=== PATIENT | male | born 1985 | race Caucasian/White ===

== ENCOUNTER 2016-07-24 15:37 | Emergency (ER) | payer OTHER, MEDICAID ==
[2016-07-24 16:04] VITALS: BP 125/69
--- NOTE | 2016-07-24 16:20 | ER Document Report ---
ED Medical Screen (RME) - General Stated Complaint: TOOTH PAIN Notes: Patient complains of left lower dental pain that has been going on for a while. Swelling started a couple of days ago, and fever started last night. Patient states he has an appointment with the dentist next Wednesday. Cough or cold symptoms. Patient states it is difficult for him to swallow. I have greeted and performed a rapid initial assessment of this patient. A comprehensive ED assessment and evaluation of the patient, analysis of test results and completion of the medical decision making process will be conducted by additional ED providers. - Related Data Allergies/Adverse Reactions: No Known Allergies Allergy (Unverified 11/26/11 18:42) Past Medical History - Past Medical History Cardiac Medical History: Reports: Hx Hypertension Neurological Medical History: Reports: Hx Migraine Psychiatric Medical History: Reports: Hx Anxiety, Hx Depression, Hx Post Traumatic Stress Disorder - Immunizations Hx Diphtheria, Pertussis, Tetanus Vaccination: No Physical Exam - Vital signs Vitals: Temp Pulse Resp BP Pulse Ox 100.1 F 109 H 16 125/69 98 07/24/16 16:02 07/24/16 16:02 07/24/16 16:02 07/24/16 16:02 07/24/16 16:02 - HEENT Teeth diagram: 1 - swelling around gums Notes: Facial swelling to left lower jaw noted. Mild erythema. Patient is unable to fully open jaw to visualize oropharynx. Course - Vital Signs Vital signs: Temp Pulse Resp BP Pulse Ox 100.1 F 109 H 16 125/69 98 07/24/16 16:02 07/24/16 16:02 07/24/16 16:02 07/24/16 16:02 07/24/16 16:02
--- NOTE | 2016-07-24 17:02 | ER Document Report ---
ED Oral Problem - General Chief Complaint: Facial Swelling Stated Complaint: TOOTH PAIN Mode of Arrival: Ambulatory Information source: Patient TRAVEL OUTSIDE OF THE [place] IN LAST 30 DAYS: No - HPI Patient complains to provider of: Swelling of jaw, Toothache Onset: Other - 2-3 DAYS Quality of pain: Dull, Throbbing Severity: Moderate Context: Fractured tooth Associated symptoms: Facial pain, Fever - TO 104 @ HOME, Toothache. denies: Unable to swallow Worsened by: Nothing Relieved by: Nothing Similar symptoms previously: Yes - NOT RECENT Recently seen / treated by doctor/dentist: No - Related Data Allergies/Adverse Reactions: ketorolac [From Toradol] Allergy (Verified 07/24/16 16:18) Past Medical History - General Information source: Patient - Social History Smoking Status: Never Smoker Chew tobacco use (# tins/day): No Frequency of alcohol use: None Drug Abuse: None Lives with: Family Family History: Reviewed & Not Pertinent Patient has suicidal ideation: No Patient has homicidal ideation: No - Past Medical History Cardiac Medical History: Reports: Hx Hypertension Pulmonary Medical History: Reports: None EENT Medical History: Reports: None Neurological Medical History: Reports: Hx Migraine Endocrine Medical History: Reports: None Renal/ Medical History: Reports: None. Denies: Hx Peritoneal Dialysis Malignancy Medical History: Reports None GI Medical History: Reports: None Musculoskeltal Medical History: Reports None Psychiatric Medical History: Reports: Hx Anxiety, Hx Depression, Hx Post Traumatic Stress Disorder Surgical Hx: Negative - Immunizations Hx Diphtheria, Pertussis, Tetanus Vaccination: No Review of Systems - Review of Systems Constitutional: Chills, Fever EENT: See HPI Cardiovascular: No symptoms reported Respiratory: No symptoms reported Gastrointestinal: No symptoms reported Genitourinary: No symptoms reported Musculoskeletal: No symptoms reported Skin: No symptoms reported Neurological/Psychological: No symptoms reported Physical Exam - Vital signs Vitals: Temp Pulse Resp BP Pulse Ox 100.1 F 109 H 16 125/69 98 07/24/16 16:02 07/24/16 16:02 07/24/16 16:02 07/24/16 16:02 07/24/16 16:02 Interpretation: Tachycardic. No: Hypoxic, Tachypneic, Febrile - 100.4 F - General General appearance: Appears well In distress: None - HEENT Head: Normocephalic Eyes: Normal Conjunctiva: Normal Ears: Normal Nasal: Normal Mouth/Lips: Normal Mucous membranes: Normal Teeth diagram: 1 - FRACTURED Pharynx: Normal Neck: Other - SWOLLEN & TENDER ALONG LEFT MANDIBLE - Respiratory Respiratory status: No respiratory distress - Cardiovascular Rhythm: Regular - Abdominal Inspection: Normal Distension: No distension - Back Back: Normal - Extremities General upper extremity: Normal inspection General lower extremity: Normal inspection - Neurological Neuro grossly intact: Yes Cognition: Normal Orientation: AAOx4 - Psychological Associated symptoms: Normal affect, Normal mood - Skin Skin Temperature: Warm Skin Moisture: Dry Skin Color: Normal Skin Turgor: Elastic Course - Vital Signs Vital signs: Temp Pulse Resp BP Pulse Ox 100.1 F 109 H 19 125/69 98 07/24/16 16:02 07/24/16 16:02 07/24/16 17:00 07/24/16 16:02 07/24/16 16:02 - Diagnostic Test Radiology reviewed: Image reviewed, Reports reviewed Discharge - Discharge Clinical Impression: Facial cellulitis, Infected dental caries Condition: Stable Disposition: HOME, SELF-CARE Instructions: Dental Infection or Abscess ([facility]), Cellulitis ([facility]), Intravenous (IV) Fluids ([facility]), Clindamycin ([facility]), Corticosteroid Medication ([facility]) Additional Instructions: REST, DRINK PLENTY OF FLUIDS. MEDS DIRECTED. FOLLOW UP WITH DENTIST OR ORAL SURGEON NEXT WEEK. FOLLOW UP WITH YOUR PRIMARY CARE PROVIDER IF NEEDED. RETURN TO E.R. IF PROBLEMS. Prescriptions: Hydrocodone/Acetaminophen [[place] 5-325 mg Tablet] 1 tab PO Q4HP PRN #14 tablet PRN Reason: For Pain Clindamycin HCl [Cleocin 150 mg Capsule] 300 mg PO Q6 #56 capsule Referrals: LINDA CANNON MD [Primary Care Provider] - Follow up as needed
[2016-07-24] MEDS ORDERED: ONDANSETRON HCL INJ/PF 4 MG/2 ML SDV IV ONE (17:21)
[2016-07-24] MEDS ORDERED: CLINDAMYCIN 600 MG/D5W RTU 50 ML IV ONE (17:21)
[2016-07-24] MEDS ORDERED: NORMAL SALINE 1000 ML 1,000 ML IV ONE (17:23)
[2016-07-24] MEDS ORDERED: HYDROMORPHONE HCL INJ/PF 2 MG/ML AMPULE IV ONE ×2 (17:23→19:26)
[2016-07-24] MEDS ORDERED: DEXAMETHASONE SOD PHOS INJ 10 MG/1 ML VIAL IV ONE (19:26)
== END 2016-07-24 22:01 | disposition home or self-care (01) ==
LOC: ER 15:37
DX: K04.7 Periapical abscess without sinus (principal); L03.211 Cellulitis of face; K02.9 Dental caries, unspecified; R50.9 Fever, unspecified; R00.0 Tachycardia, unspecified; I10 Essential (primary) hypertension; Z88.8 Allergy status to other drugs, medicaments and biological substances
CPT/HCPCS: 96376; 99283; 96361; 96374; 96375; 70487; J1170; J2405; J7030; J1100

== ENCOUNTER 2016-12-02 20:56 | Emergency (ER) | payer OTHER, MEDICAID ==
[2016-12-02] MEDS ORDERED: DIPH/PERTUSS(ACELL)/TETANUS VAC/PF 0.5 ML SYR (>=10YO) IM ONE (21:21)
--- NOTE | 2016-12-02 21:25 | ER Document Report ---
ED Psych Disorder / Suicide - General Chief Complaint: Psych Problem Stated Complaint: MENTAL HEALTH EVAL Time Seen by Provider: 12/02/16 21:08 Mode of Arrival: Medic Information source: Patient Notes: Is a 31-year-old man with a history of PTSD, TBI, brought in by EMS for aggressive behavior, suicidal ideations. Patient states he has been very frustrated yesterday today and he had an emotional outburst and started to punch the wall, took a knife and started to cut his arms. Medications: Seroquel 150 mg nightly, Klonopin 1 mg twice daily Trileptal 150 mg nightly TRAVEL OUTSIDE OF THE [place] IN LAST 30 DAYS: No - HPI Patient complains to provider of: Aggression, Agitated, Suicidal ideation, Self injury Onset: Just prior to arrival Onset was: Sudden Quality of pain: Dull Severity: Moderate Pain Level: 2 Suicide Risk Factors: Chronic illness, Lethal weapons in home, Male Overdose of: No: Acetominophen, Alcohol, Anticholinergic, Anti-depressants, Benzodiazepine, Salicylate, Tricyclic Antidepressant, Other Injury to: Hand, Upper extremity Normal mood: No Associated symptoms: Aggressive, Agitated, Anxious Similar symptoms previously: Yes Recently seen / treated by doctor: No - Related Data Allergies/Adverse Reactions: ketorolac [From Toradol] Allergy (Verified 12/02/16 21:19) Home Medications: Current Home Medications Clonazepam [Klonopin 1 mg Tablet] 1 mg PO DAILY 12/02/16 [History] Oxcarbazepine [Trileptal 150 mg Tablet] 150 mg PO DAILY 12/02/16 [History] Quetiapine Fumarate [Seroquel Xr] 150 mg PO DAILY 12/02/16 [History] Past Medical History - General Information source: Patient - Social History Smoking Status: Never Smoker Cigarette use (# per day): No Chew tobacco use (# tins/day): No Frequency of alcohol use: None Drug Abuse: None Lives with: Spouse/Significant other Family History: Reviewed & Not Pertinent Patient has suicidal ideation: No Patient has homicidal ideation: No - Past Medical History Cardiac Medical History: Reports: Hx Hypertension Neurological Medical History: Reports: Hx Migraine Renal/ Medical History: Denies: Hx Peritoneal Dialysis Psychiatric Medical History: Reports: Hx Anxiety, Hx Depression, Hx Post Traumatic Stress Disorder - Immunizations Hx Diphtheria, Pertussis, Tetanus Vaccination: No Review of Systems - Review of Systems Constitutional: No symptoms reported EENT: No symptoms reported Cardiovascular: No symptoms reported Respiratory: No symptoms reported Gastrointestinal: No symptoms reported Genitourinary: No symptoms reported Male Genitourinary: No symptoms reported Musculoskeletal: See HPI Skin: See HPI Hematologic/Lymphatic: No symptoms reported Neurological/Psychological: See HPI Physical Exam - Vital signs Vitals: Temp Pulse Resp BP Pulse Ox 99.1 F 107 H 16 129/89 H 98 12/02/16 21:21 12/02/16 21:21 12/02/16 21:21 12/02/16 21:21 12/02/16 21:21 Notes: Physical exam: GENERAL: 31-year-old man, alert and oriented 3, no acute distress, labile affect. HEAD: Atraumatic, normocephalic. EYES: Pupils equal round and reactive to light, extraocular movements intact, sclera anicteric, conjunctiva are normal. ENT: TMs normal, nares patent, oropharynx clear without exudates. Moist mucous membranes. NECK: Normal range of motion, supple without lymphadenopathy or JVD. LUNGS: Breath sounds clear to auscultation bilaterally and equal. No wheezes rales or rhonchi. HEART: Regular rate and rhythm without murmurs, rubs or gallops. ABDOMEN: Soft, normoactive bowel sounds. No tenderness to palpation. No guarding, no rebound. No masses appreciated. EXTREMITIES: Patient has swelling over the fourth and fifth third, MCP joint of the right hand. Cut noble noted on upper extremities bilaterally. NEUROLOGICAL: Cranial nerves II through XII grossly intact. Normal speech, normal gait. PSYCH: labile affect SKIN: Multiple self-induced cut noble to the volar aspects of both forearms.. Multiple Course - Re-evaluation Re-evalutation: 12/03/16 02:38 Note: Patient does have asymptomatic hematuria. He does have a history of back pain but I think that is more musculoskeletal in origin. CT shows no evidence of ureteral stones. The urine analysis does have 1+ bacteria so I am going to give him an antibiotic with the plan of 5 days of Bactrim. We will send a urine culture. He is medically clear for discharge or psychiatric transfer. Plan is for waiting for psychiatry in the morning. At this point, he is willing to stay so I am going to keep him as a voluntary. - Vital Signs Vital signs: Temp Pulse Resp BP Pulse Ox 99.1 F 107 H 16 129/89 H 98 12/02/16 21:21 12/02/16 21:21 12/02/16 21:21 12/02/16 21:21 12/02/16 21:21 - Laboratory Result Diagrams: 12/02/16 21:53 12/02/16 21:53 Laboratory results interpreted by me: 12/02/16 12/02/16 21:53 22:20 Urine Protein 100 H Urine Ketones TRACE H Urine Blood LARGE H Salicylates < 1.0 L Acetaminophen < 10 L - Diagnostic Test Radiology reviewed: Image reviewed, Reports reviewed - CT of the abdomen shows no acute intra-abdominal process - EKG Interpretation by Me Rate: Normal Rhythm: NSR - EKG shows normal sinus rhythm with a ventricular rate of 97, no acute ST-T wave changes Discharge - Discharge Clinical Impression: Depression, Suicidal ideation, Right hand contusion, Cutting to the upper extremities, Hematuria asymptomatic, rigjht hand contusion Condition: Stable Disposition: PSYCH HOSP/UNIT Prescriptions: Sulfamethoxazole/Trimethoprim [Bactrim Ds Tablet] 1 each PO BID #8 tablet
--- NOTE | 2016-12-02 21:59 | RADIOLOGY REPORT (SQ) ---
EXAM DESCRIPTION: HAND RIGHT 3 VIEWS COMPLETED DATE/TIME: 12/02/2016 9:43 pm REASON FOR STUDY: swelling 3,4,5 mcp jts COMPARISON: None. EXAM PARAMETERS: NUMBER OF VIEWS: Three views. TECHNIQUE: AP, lateral and oblique radiographic images acquired of the right hand. LIMITATIONS: None. FINDINGS: MINERALIZATION: Normal. BONES: No acute fracture or dislocation. No worrisome bone lesions. JOINTS: No effusions. SOFT TISSUES: No soft tissue swelling. No foreign body. OTHER: No other significant finding. IMPRESSION: NEGATIVE STUDY OF THE RIGHT HAND. NO RADIOGRAPHIC EVIDENCE OF ACUTE INJURY. TECHNICAL DOCUMENTATION: JOB ID: [id number] [employer]- All Rights Reserved
[2016-12-02 22:09] LABS: ABSOLUTE BASOPHILS # (AUTO) 0.1 10^3/uL (0.0-0.2); ABSOLUTE EOSINOPHILS # (AUTO) 0.1 10^3/uL (0.0-0.6); ABSOLUTE MONOCYTES (AUTO) 0.8 10^3/uL (0.1-1.4); ABSOLUTE NEUT (AUTO) 5.2 10^3/uL (1.7-8.2); BASOPHILS % (AUTO) 0.9 % (0-2); HEMATOCRIT 44.1 % (37.9-51.0); HGB HCT DIFFERENCE 0.9; LYMPHOCYTES % (AUTO) 24.4 % (13-45); MEAN CORPUSCULAR HEMOGLOBIN 30.7 pg (27.0-33.4); MEAN CORPUSCULAR HGB CONC 33.9 g/dL (32.0-36.0); MEAN CORPUSCULAR VOLUME 91 fl (80-97); MONOCYTES % (AUTO) 9.2 % (3-13); RED BLOOD COUNT 4.87 10^6/uL (4.35-5.55); RED CELL DISTRIBUTION WIDTH 13.1 % (11.5-14.0); SEGMENTED NEUTROPHILS % (AUTO) 64.5 % (42-78); WHITE BLOOD COUNT 8.1 10^3/uL (4.0-10.5)
[2016-12-02 22:26] LABS: ALANINE AMINOTRANSFERASE 26 U/L (21-72); ALCOHOL < 10 mg/dL (NONE DETECTED); ALKALINE PHOSPHATASE 92 U/L (38-126); ANION GAP 15 (5-19); ASPARTATE AMINO TRANSFERASE 17 U/L (17-59); BILIRUBIN,DIRECT 0.3 mg/dL (0.0-0.4); BILIRUBIN,TOTAL 0.6 mg/dL (0.2-1.3); BLOOD UREA NITROGEN 10 mg/dL (7-20); CARBON DIOXIDE 23 mmol/L (22-30); CHLORIDE 105 mmol/L (98-107); CREATININE RESULT 0.96 mg/dL (0.52-1.25); GLUCOSE 98 mg/dL (75-110); SODIUM 142.6 mmol/L (137-145); TOTAL PROTEIN 8.1 g/dL (6.3-8.2)
[2016-12-02 22:52] LABS: APPEARANCE,URINE CLOUDY; BILIRUBIN,URINE NEGATIVE (NEGATIVE); CALCIUM OXALATE CRYSTALS,URINE FEW /HPF; GLUCOSE, URINE NEGATIVE (NEGATIVE); KETONES,URINE TRACE mg/dL (NEGATIVE); LEUKOCYTE ESTERASE,URINE NEGATIVE (NEGATIVE); NITRITE,URINE NEGATIVE (NEGATIVE); PROTEIN,URINE 100 mg/dL (NEGATIVE); URINE SPECIFIC GRAVITY 1.019; UROBILINOGEN,URINE NEGATIVE mg/dL (<2.0)
[2016-12-02 23:01] LABS: URINE BARBITURATES SCREEN NEGATIVE; URINE METHADONE SCREEN NEGATIVE; URINE OPIATES LOW NEGATIVE; URINE PHENCYCLIDINE SCREEN NEGATIVE
--- NOTE | 2016-12-03 01:51 | RADIOLOGY REPORT (SQ) ---
EXAM DESCRIPTION: CT LTD RENAL STONE PROTOCOL ON COMPLETED DATE/TIME: 12/03/2016 1:25 am REASON FOR STUDY: right flank pain COMPARISON: None. TECHNIQUE: CT scan of the abdomen and pelvis performed without intravenous or oral contrast. Images reviewed with lung, soft tissue, and bone windows. Reconstructed coronal and sagittal MPR images revi ewed. All images stored on PACS. All CT scanners at this facility use dose modulation, iterative reconstruction, and/or weight based d osing when appropriate to reduce radiation dose to as low as reasonably achievable (ALARA). [facility]: Dose Right [facility]: CareDose [facility]: Dose Right [facility]: Teradose 4D [facility]: Smart [employer] RADIATION DOSE: Up-to-date CT equipment and radiation dose reduction techniques were employed. CTDIv ol: 23.3 mGy. DLP: 1326 mGy-cm.mGy. LIMITATIONS: None. FINDINGS: LOWER CHEST: No significant findings. No nodules or infiltrates. NON-CONTRASTED LIVER, SPLEEN, ADRENALS: Evaluation limited by lack of IV contrast. No identified sign ificant masses. PANCREAS: No masses. No peripancreatic inflammatory changes. GALLBLADDER: No identified stones by CT criteria. No inflammatory changes to suggest cholecystitis. RIGHT KIDNEY AND URETER: No suspicious masses. Assessment limited by lack of IV contrast. Punctate stones. No hydronephrosis or hydroureter. LEFT KIDNEY AND URETER: No suspicious masses. Assessment limited by lack of IV contrast. Punctate n ephrolithiasis. No hydronephrosis or hydroureter. AORTA AND RETROPERITONEUM: No aneurysm. No retroperitoneal masses or adenopathy. BOWEL AND PERITONEAL CAVITY: No obvious masses or inflammatory changes. No free fluid. APPENDIX: Normal. PELVIS, BLADDER, AND ABDOMINAL WALL:No abnormal masses. No free fluid. Bladder normal. BONES: Chronic bilateral L5 spondylolysis and [id number] bilateral L5 foraminal stenoses due to a small disc bulge. OTHER: No other significant finding. IMPRESSION: No acute findings. Punctate bilateral nephrolithiasis. [id number] bilateral L5 f oraminal stenosis due to a small disc bulge. Chronic bilateral L5 spondylolysis. TECHNICAL DOCUMENTATION: JOB ID: [id number] Quality ID # [id number]: Final reports with documentation of one or more dose reduction techniques (e.g., Au tomated exposure control, adjustment of the mA and/or kV according to patient size, use of iterative reconstruction technique) 2010 [facility] [employer]- All Rights Reserved
[2016-12-03] MEDS ORDERED: SULFAMETHOXAZOLE/TRIMETHOPRIM 800-160 MG TABLET PO ONE (02:38)
[2016-12-03] MEDS ORDERED: QUETIAPINE FUMARATE 100 MG TABLET PO SCH ×2 (02:45→22:00)
[2016-12-03] MEDS ORDERED: CLONAZEPAM 1 MG TABLET PO PRN (02:45)
[2016-12-03] MEDS ORDERED: OXCARBAZEPINE 150 MG TABLET PO SCH ×2 (03:00→22:00)
[2016-12-03] MEDS ORDERED: QUETIAPINE FUMARATE 100 MG TABLET PO ONE (03:30)
[2016-12-03] MEDS ORDERED: OXCARBAZEPINE 150 MG TABLET PO ONE (03:30)
--- NOTE | 2016-12-03 09:32 | PSYCHOLOGICAL NOTE ---
Psych Note - Psych Note Psych Note: Patient resting comfortably in the bed. He denies any complaints at this time. He is currently awaiting placement.
[2016-12-03 13:08] VITALS: BP 141/76
--- NOTE | 2016-12-03 17:09 | EKG REPORT ---
SEVERITY:- ABNORMAL ECG - SINUS RHYTHM PROBABLE LEFT VENTRICULAR HYPERTROPHY : Confirmed by: Mer Valente MD 03-Dec-2016 17:09:02
== END 2016-12-03 13:17 ==
LOC: ER 20:56
DX: S51.812A Laceration without foreign body of left forearm, initial encounter (principal); S51.811A Laceration without foreign body of right forearm, initial encounter; X78.1XXA Intentional self-harm by knife, initial encounter; S60.221A Contusion of right hand, initial encounter; X58.XXXA Exposure to other specified factors, initial encounter; F32.9 Major depressive disorder, single episode, unspecified; F43.10 Post-traumatic stress disorder, unspecified; R31.9 Hematuria, unspecified; F41.9 Anxiety disorder, unspecified; I10 Essential (primary) hypertension; Z79.899 Other long term (current) drug therapy; Z88.8 Allergy status to other drugs, medicaments and biological substances; Z87.820 Personal history of traumatic brain injury
CPT/HCPCS: 36415; 76380; 80053; 80307; 81001; 85025; 87086; 90471; 90715; 93005; 93010; 99285

== ENCOUNTER 2018-09-23 12:57 | Emergency (ER) | payer OTHER, MEDICAID ==
--- NOTE | 2018-09-23 13:15 | ER Document Report ---
ED Medical Screen (RME) - General Chief Complaint: Psych Problem Stated Complaint: PSYCH EVAL Time Seen by Provider: 09/23/18 13:09 Mode of Arrival: Ambulatory Information source: Patient Notes: 33-year-old male presented to ED for psych evaluation and possible voluntary or involuntary admission. Patient states that he has a history of PTSD since coming home from [facility] and he is been seen and admitted IVC and in patient but nothing seems to be helping. Significant other states [facility]. She states that every day he states he is done with that he has had a set up with everything. I have greeted and performed a rapid initial assessment of this patient. A comprehensive ED assessment and evaluation of the patient, analysis of test results and completion of medical decision making process will be conducted by an additional ED providers. Dictation of this chart was performed using voice recognition software; therefore, there may be some unintended grammatical errors. TRAVEL OUTSIDE OF THE U.S. IN LAST 30 DAYS: No - Related Data Allergies/Adverse Reactions: ketorolac [From Toradol] Allergy (Verified 09/23/18 12:58) Past Medical History - Past Medical History Cardiac Medical History: Reports: Hx Hypertension Neurological Medical History: Reports: Hx Migraine Renal/ Medical History: Denies: Hx Peritoneal Dialysis Psychiatric Medical History: Reports: Hx Anxiety, Hx Depression, Hx Post Traumatic Stress Disorder - Immunizations Hx Diphtheria, Pertussis, Tetanus Vaccination: No Physical Exam - Vital signs Vitals: Temp Pulse Resp BP Pulse Ox 98.3 F 66 16 129/81 H 100 09/23/18 13:01 09/23/18 13:01 09/23/18 13:01 09/23/18 13:01 09/23/18 13:01 Course - Vital Signs Vital signs: Temp Pulse Resp BP Pulse Ox 98.3 F 66 16 129/81 H 100 09/23/18 13:01 09/23/18 13:01 09/23/18 13:01 09/23/18 13:01 09/23/18 13:01
[2018-09-23 13:51] LABS: ABSOLUTE EOSINOPHILS # (AUTO) 0.1 10^3/uL (0.0-0.6); ABSOLUTE LYMPHOCYTES (AUTO) 2.7 10^3/uL (0.5-4.7); ABSOLUTE MONOCYTES (AUTO) 0.7 10^3/uL (0.1-1.4); ABSOLUTE NEUT (AUTO) 7.5 10^3/uL (1.7-8.2); BASOPHILS % (AUTO) 0.4 % (0-2); EOSINOPHILS % (AUTO) 0.7 % (0-6); HEMATOCRIT 45.8 % (37.9-51.0); HEMOGLOBIN 15.6 g/dL (13.5-17.0); LYMPHOCYTES % (AUTO) 24.7 % (13-45); MEAN CORPUSCULAR HEMOGLOBIN 30.6 pg (27.0-33.4); MEAN CORPUSCULAR VOLUME 90 fl (80-97); MONOCYTES % (AUTO) 6.5 % (3-13); PLATELET COUNT 318 10^3/uL (150-450); RED BLOOD COUNT 5.09 10^6/uL (4.35-5.55); RED CELL DISTRIBUTION WIDTH 13.7 % (11.5-14.0); SEGMENTED NEUTROPHILS % (AUTO) 67.7 % (42-78); TOTAL CELLS COUNTED % (AUTO) 100 %; WHITE BLOOD COUNT 11.1 10^3/uL (4.0-10.5)
[2018-09-23 14:34] LABS: ALANINE AMINOTRANSFERASE 21 U/L (21-72); ALBUMIN 4.8 g/dL (3.5-5.0); ALKALINE PHOSPHATASE 104 U/L (38-126); ANION GAP 12 (5-19); ASPARTATE AMINO TRANSFERASE 19 U/L (17-59); BILIRUBIN,DIRECT 0.2 mg/dL (0.0-0.4); BILIRUBIN,TOTAL 0.7 mg/dL (0.2-1.3); BLOOD UREA NITROGEN 15 mg/dL (7-20); CALCIUM 10.3 mg/dL (8.4-10.2); CARBON DIOXIDE 26 mmol/L (22-30); CHLORIDE 106 mmol/L (98-107); GLUCOSE 105 mg/dL (75-110); POTASSIUM 4.4 mmol/L (3.6-5.0); SODIUM 143.9 mmol/L (137-145); TOTAL PROTEIN 7.9 g/dL (6.3-8.2)
[2018-09-23 14:38] LABS: ACETAMINOPHEN < 10 ug/mL (10-30); ALCOHOL < 10 mg/dL (NONE DETECTED); SALICYLATE < 1.0 mg/dL (2.0-20.0)
--- NOTE | 2018-09-23 15:00 | ER Document Report ---
ED Psych Disorder / Suicide - General Chief Complaint: Psych Problem Stated Complaint: PSYCH EVAL Time Seen by Provider: 09/23/18 13:09 Mode of Arrival: Ambulatory Notes: 33-year-old male with a history of PTSD presents to the ER after being sent from the [facility]. The patient got out of [place] in 2010. Had PTSD since then. He has recurring cycles of suicidal thoughts. He did try to hurt himself in the past. He states that he was opening up to his counselor a little bit about his thoughts. He has no specific plan. The patient stated he has been treated for his PTSD again and again he states he is actually not bad. He denies any homicidal ideation denies any active suicidal ideation but does admit to having thoughts recently. Denies visual auditory hallucinations. Patient is very agreeable and cooperative TRAVEL OUTSIDE OF THE [place] IN LAST 30 DAYS: No - Related Data Allergies/Adverse Reactions: ketorolac [From Toradol] Allergy (Verified 09/23/18 12:58) Past Medical History - General Information source: Patient - Social History Smoking Status: Never Smoker Frequency of alcohol use: None Drug Abuse: None Family History: Reviewed & Not Pertinent Patient has suicidal ideation: No Patient has homicidal ideation: No - Past Medical History Cardiac Medical History: Reports: Hx Hypertension Neurological Medical History: Reports: Hx Migraine Renal/ Medical History: Denies: Hx Peritoneal Dialysis Psychiatric Medical History: Reports: Hx Anxiety, Hx Depression, Hx Post Tr aumatic Stress Disorder Past Surgical History: Reports: Hx Genitourinary Surgery - vasectomy - Immunizations Hx Diphtheria, Pertussis, Tetanus Vaccination: No Review of Systems - Review of Systems Constitutional: denies: Chills, Fever Cardiovascular: denies: Chest pain Respiratory: denies: Short of breath Gastrointestinal: denies: Abdominal pain, Nausea, Vomiting Neurological/Psychological: Anxiety, Suicidal ideation. denies: Homicidal ideation -: Yes All other systems reviewed and negative Physical Exam - Vital signs Vitals: Temp Pulse Resp BP Pulse Ox 98.3 F 66 16 129/81 H 100 09/23/18 13:01 09/23/18 13:01 09/23/18 13:01 09/23/18 13:01 09/23/18 13:01 - Notes Notes: GENERAL_APPEARANCE: well_nourished, alert, cooperative, no_acute_distress, no_obvious_discomfort. VITALS: reviewed, see vital signs table. HEAD: no_swelling\tenderness on the head. EYES: PERRL, EOMI, conjunctiva_clear. NOSE: no_nasal_discharge. MOUTH: (-)decreased moisture. THROAT: no_tonsilar_inflammation, no_airway_obstruction. no_lymphadenopathy NECK: supple, no_neck_tenderness, (-)thyromegaly. BACK: no_back_tenderness. CHEST_WALL: no_chest_tenderness. LUNGS: no_wheezing, no_rales, no_rhonchi, (-)accessory muscle use, good air exchange bilateral. HEART: normal_rate, normal_rhythm, normal_S1, normal_S2, (-)S3, (-)S4, no_murmur, no_rub. ABDOMEN: normal_BS, soft, no_abd_tenderness, (-)guarding, (-)rebound, no_org anomegaly, no_abd_masses. EXTREMITIES: good pulses in all_extremities, no_swelling\tenderness in the extremities, no_edema. SKIN: warm, dry, good_color, no_rash. MENTAL_STATUS: speech_clear, oriented_X_3, normal_affect, responds_appropriately to questions. PSYCH: Patient denies suicidal homicidal thoughts denies visual auditory hallucinations. He does give me a history of PTSD with recurrent depression and suicidal thoughts. He states he is not actively suicidal at this time however he he was talking to his counselor about some of his thoughts and they sent him here. Course - Re-evaluation Re-evalutation: 09/23/18 14:59 Patient was sent by [facility] [place] [facility] for [facility] and [facility]. Patient is very pleasant and agreeable. He denies any suicidal homicidal thoughts denies visual auditory hallucinations. The patient very organized laid out his pattern with his PTSD. He was opening up to his counselor which he is regretful from and telling him that he has had some suicidal thoughts lately but has no speci fic plan and does not actively suicidal. And was sent here he states he is not suicidal. He is doing fine his endorses this also. Have the patient seen by psychiatry but as of now he is looking pretty good and has been very agreeable cooperative organized thought and making a pretty reasonable story - Vital Signs Vital signs: Temp Pulse Resp BP Pulse Ox 98.3 F 66 16 129/81 H 100 09/23/18 13:01 09/23/18 13:01 09/23/18 13:01 09/23/18 13:01 09/23/18 13:01 - Laboratory Result Diagrams: 09/23/18 10:32 09/23/18 10:32 Laboratory results interpreted by me: 09/23/18 09/23/18 10:32 10:32 WBC 11.1 H Calcium 10.3 H Salicylates < 1.0 L Acetaminophen < 10 L Discharge - Discharge Clinical Impression: PTSD (post-traumatic stress disorder) Condition: Good Disposition: PSYCH HOSP/UNIT
--- NOTE | 2018-09-23 16:21 | EKG REPORT ---
SEVERITY:- OTHERWISE NORMAL ECG - SINUS RHYTHM BORDERLINE RIGHT AXIS DEVIATION : Confirmed by: Shiv Reid MD 23-Sep-2018 16:20:48
[2018-09-23] MEDS: VENLAFAXINE HCL 37.5 MG CAP.SR.24H PO SCH (18:07)
--- NOTE | 2018-09-23 18:29 | PSYCHOLOGICAL NOTE ---
Psych Note - Psych Note Date seen by psych provider: 09/23/18 Time seen by psych provider: 14:00 Psych Note: Reason for Consult: suicidal ideation consent permissions: patient's , Renetta, at bedside per patient's request 33-year-old male presented to ED for psych evaluation and possible voluntary or involuntary admission. Medication recommendations per [facility]'s contracted psychiatrist Dr. Saad SOSA are as follows Please decrease home medication of BuSpar to 5 mg twice daily Please decrease home medication of melatonin to 5 mg nightly Please start Effexor 37.5 mg be daily While at [facility] ED please start clonidine 0.1 mg nightly Upon discharge please replace clonidine with a prescription for prazosin 2 mg nightly Please discontinue home medications of Ambien and Xanax 309.81 (F43.10) posttraumatic stress disorder [facility] by [facility]; patient is 100% disabled due to this diagnosis per [facility] Impression\plan: Patient is recommended for overnight mental health observation. This is voluntary. Patient does not meet IVC criteria per [place] GS 122C. He has been demonstrating strong insight, judgment and impulse control both throughout evaluation with clinician and today while he is been attempting to receive additional services. Patient discloses wanting assistance and states that he attempted to receive services from both his outpatient mental health provider for medication management, [facility], and [facility]. He confirms symptoms have gotten to level where he needs to take a more active role in his treatment i.e. possible medication changes and engage in therapeutic services. Medication recommendations have been provided. Both patient and patient's are very comfortable with the plan for the patient to stay voluntarily for medication adjustments. Probable discharge tomorrow a.m. Dr. De Leon was consulted and the care management this patient; attending physicians in agreement with recommendations and disposition.
[2018-09-23 19:48] LABS: APPEARANCE,URINE CLEAR; BILIRUBIN,URINE NEGATIVE (NEGATIVE); COLOR,URINE YELLOW; GLUCOSE, URINE NEGATIVE (NEGATIVE); KETONES,URINE 80 mg/dL (NEGATIVE); LEUKOCYTE ESTERASE,URINE NEGATIVE (NEGATIVE); NITRITE,URINE NEGATIVE (NEGATIVE); PROTEIN,URINE NEGATIVE (NEGATIVE); URINE SPECIFIC GRAVITY 1.021
[2018-09-23 20:06] LABS: URINE AMPHETAMINES SCREEN NEGATIVE; URINE BARBITURATES SCREEN NEGATIVE; URINE BENZODIAZEPINES SCREEN UNCONFIRMED POSITIVE; URINE COCAINE SCREEN NEGATIVE; URINE MARIJUANA (THC) SCREEN UNCONFIRMED POSITIVE; URINE METHADONE SCREEN NEGATIVE; URINE PHENCYCLIDINE SCREEN NEGATIVE
[2018-09-23] MEDS ORDERED: MELATONIN 5 MG TABLET PO SCH (22:00)
[2018-09-23] MEDS ORDERED: CLONIDINE HCL 0.1 MG TABLET PO SCH (22:00)
[2018-09-23] MEDS: BUSPIRONE HCL 10 MG TABLET PO SCH (22:38)
[2018-09-24] MEDS ORDERED: ACETAMINOPHEN 325 MG TABLET PO ONE (01:29)
[2018-09-24] MEDS ORDERED: ONDANSETRON 4 MG TAB.RAPDIS PO ONE (01:29)
[2018-09-24] MEDS ORDERED: SUMATRIPTAN SUCCINATE 100 MG TABLET PO ONE (09:19)
--- NOTE | 2018-09-24 10:13 | ER Document Report ---
Doctor's Note Notes: 09/24/18 10:11 Rounds: Chart reviewed and patient interviewed. Patient is being evaluated for PTSD with suicidal ideation. Patient says he is not suicidal. Seems a bit perturbed and agitated but he is still here because he thought he agreed to come to the emergency department and be evaluated overnight and then be discharged. Patient is complaining of a migraine headache. The headache is exactly like many in the past. He usually takes Imitrex I have given him 100 mg pill of Imitrex. Vital signs are all normal. Lab studies show a positive urine drug screen for marijuana and benzos. Patient appears to be medically stable for transfer or discharge. Ranulfo Martins MD
[2018-09-24] MEDS: BUSPIRONE HCL 10 MG TABLET PO SCH (10:18)
[2018-09-24] MEDS: VENLAFAXINE HCL 37.5 MG CAP.SR.24H PO SCH (10:18)
[2018-09-24 11:08] VITALS: BP 139/86
== END 2018-09-24 11:26 | disposition home or self-care (01) ==
LOC: ER 12:57
DX: F43.10 Post-traumatic stress disorder, unspecified (principal); I10 Essential (primary) hypertension; F29 Unspecified psychosis not due to a substance or known physiological condition
CPT/HCPCS: 93005; 99285; 36415; 80307 ×4; 85025; 80053; 81001; 93010; J3490 ×3; S0119

== ENCOUNTER 2020-05-20 17:54 | Emergency (ER) | payer OTHER, MEDICAID ==
[2020-05-20] MEDS ORDERED: ONDANSETRON HCL INJ/PF 4 MG/2 ML SDV IV ONE (19:37)
[2020-05-20] MEDS ORDERED: MORPHINE SULFATE 10 MG/ML INJ IV ONE ×2 (19:38→23:41)
[2020-05-20] MEDS ORDERED: NORMAL SALINE 1000 ML 1,000 ML IV ONE (19:38)
--- NOTE | 2020-05-20 19:42 | ER Document Report ---
ED Medical Screen (RME) - General Chief Complaint: Abdominal Pain Stated Complaint: ABDOMINAL PAIN Time Seen by Provider: 05/20/20 19:33 Primary Care Provider: [facility] MENDOZA [Primary Care Provider] - Follow up as needed Notes: HPI: 34-year-old male presenting with right lower quadrant pain that began yesterday and progressively worsened today. Hurts to move hurts to straighten out. Patient states he feels like the pain is in the right lower quadrant with some radiation into the right upper quadrant and right testicle but denies testicular pain specifically. No fever. Has had nausea with no vomiting. Has had diarrhea. PHYSICAL EXAMINATION: Patient is moderately pale. He is moderately uncomfortable. He has increased discomfort with straightening. He has tenderness over McBurney's point in the right lower quadrant with rebound. exam deferred in triage secondary to privacy and patient fully dressed will be deferred to room in the back for other provider to follow and examine I have greeted and performed a rapid initial assessment of this patient. A comprehensive ED assessment and evaluation of the patient, analysis of test results and completion of medical decision making process will be conducted by an additional ED providers. Please note that clinical decision making for this patient was made during the 2019 pandemic of novel coronavirus which caused a significant strain on the healthcare system including at this particular facility. Criteria for admission discharge and level of care decisions as well as treatment decisions have necessarily changed TRAVEL OUTSIDE OF THE [place] IN LAST 30 DAYS: No - Related Data Allergies/Adverse Reactions: ketorolac [From Toradol] Allergy (Verified 09/23/18 12:58) Past Medical History - Past Medical History Cardiac Medical History: Reports: Hx Hypertension Neurological Medical History: Reports: Hx Migraine Renal/ Medical History: Denies: Hx Peritoneal Dialysis Psychiatric Medical History: Reports: Hx Anxiety, Hx Depression, Hx Post Traumatic Stress Disorder Past Surgical History: Reports: Hx Genitourinary Surgery - vasectomy - Immunizations Hx Diphtheria, Pertussis, Tetanus Vaccination: No Physical Exam - Vital signs Vitals: Temp Pulse Resp BP Pulse Ox 97.9 F 68 16 132/79 H 97 05/20/20 17:58 05/20/20 17:58 05/20/20 17:58 05/20/20 17:58 05/20/20 17:58 Course - Vital Signs Vital signs: Temp Pulse Resp BP Pulse Ox 97.9 F 68 16 132/79 H 97 05/20/20 17:58 05/20/20 17:58 05/20/20 17:58 05/20/20 17:58 05/20/20 17:58 Doctor's Discharge - Discharge Referrals: [facility] [Primary [facility]] - Follow up as needed
--- NOTE | 2020-05-20 20:30 | ER Document Report ---
ED GI/ - General Chief Complaint: Abdominal Pain Stated Complaint: ABDOMINAL PAIN Time Seen by Provider: 05/20/20 19:33 Primary Care Provider: [facility] [Provider Group] - Follow up as needed ISA POWELL MD [NO LOCAL MD] - Follow up in 3-5 days [facility] [Primary Care Provider] - Follow up as needed Mode of Arrival: Ambulatory Information source: Patient Notes: Patient presents with right lower quadrant abdominal pain that started yesterday . Patient reports nausea although denies any vomiting or diarrhea. Patient does complain of pain to the right scrotal area. Patient states he did notice some burning with urination. Patient states he has had a normal appetite without any fever. TRAVEL OUTSIDE OF THE [place] IN LAST 30 DAYS: No - HPI Patient complains to provider of: Abdominal pain, Testicular pain. No: Diarrhea, Vomiting Onset: Yesterday Timing/Duration: Worse Quality of pain: Achy Pain Level: 5 Location: RLQ Associated symptoms: Dysuria, Nausea. denies: Fever, Loss of appetite, Urinary hesitancy, Urinary frequency, Urinary retention, Urinary urgency, Vomiting Exacerbated by: Denies Relieved by: Denies Similar symptoms previously: No Recently seen / treated by doctor: No - Related Data Allergies/Adverse Reactions: ketorolac [From Toradol] Allergy (Verified 09/23/18 12:58) Home Medications: Trazadone Past Medical History - General Information source: Patient - Social History Smoking Status: Never Smoker Frequency of alcohol use: None Drug Abuse: None Occupation: None Family History: Reviewed & Not Pertinent Patient has homicidal ideation: No Neurological Medical History: Reports: Hx Migraine Renal/ Medical History: Denies: Hx Peritoneal Dialysis Musculoskeletal Medical History: Reports Hx Arthritis - Back pain Psychiatric Medical History: Reports: Hx Anxiety, Hx Depression, Hx Post Traumatic Stress Disorder Past Surgical History: Reports: Hx Genitourinary Surgery - vasectomy - Immunizations Hx Diphtheria, Pertussis, Tetanus Vaccination: No Review of Systems - Review of Systems Constitutional: No symptoms reported. denies: Fever EENT: No symptoms reported Cardiovascular: No symptoms reported. denies: Chest pain Respiratory: No symptoms reported. denies: Cough, Short of breath Gastrointestinal: Abdominal pain, Nausea. denies: Diarrhea, Vomiting Genitourinary: Dysuria. denies: Flank pain Male Genitourinary: No symptoms reported Musculoskeletal: No symptoms reported. denies: Back pain Skin: No symptoms reported Hematologic/Lymphatic: No symptoms reported Neurological/Psychological: No symptoms reported Physical Exam - Vital signs Vitals: Temp Pulse Resp BP Pulse Ox 97.9 F 68 16 132/79 H 97 05/20/20 17:58 05/20/20 17:58 05/20/20 17:58 05/20/20 17:58 05/20/20 17:58 - General General appearance: Appears well, Alert In distress: None - HEENT Head: Normocephalic, Atraumatic Eyes: Normal Conjunctiva: Normal Nasal: Normal Mouth/Lips: Normal Mucous membranes: Normal Neck: Normal, Supple - Respiratory Respiratory status: No respiratory distress Chest status: Nontender Breath sounds: Normal. No: Rales, Rhonchi, Stridor, Wheezing Chest palpation: Normal - Cardiovascular Rhythm: Regular Heart sounds: S1 appreciated, S2 appreciated Murmur: No - Abdominal Inspection: Normal Distension: No distension Bowel sounds: Normal Tenderness: Tender - RLQ, right lower pelvic tenderness - Genitourinary Inspection: Normal Tenderness: Testicle tender - right Cremasteric reflex: Normal Scrotum: Normal. No: Swelling, Redness, Hot to touch Notes: RN AMITA as standby - Back Back: Normal, Nontender. No: CVA tenderness - Extremities General upper extremity: Normal inspection, Normal strength General lower extremity: Normal inspection, Normal strength - Neurological Neuro grossly intact: Yes Cognition: Normal [place] Coma Scale Eye Opening: Spontaneous [place] Coma Scale Verbal: Oriented [place] Coma Scale Motor: Obeys Commands [place] Coma Scale Total: 15 - Psychological Associated symptoms: Normal affect, Normal mood - Skin Skin Temperature: Warm Skin Moisture: Dry Skin Color: Normal Course - Re-evaluation Re-evalutation: 05/20/20 23:[address] report findings. No concern for acute appendicitis. Patient complains of pain 3/5 scale. Additional pain medication ordered. Patient is still awaiting ultrasound at this time. 05/21/20 01:13 Patient with 2 mm ureteral stone noted on the right side. Patient without any fever, abnormal renal function or UTI. Patient will be provided with a urine strainer and encouraged to follow-up with urology for further evaluation. Ultrasound reviewed, no concern for any testicular torsion. Patient stable for discharge at this time. Good return precautions discussed with patient. - Vital Signs Vital signs: Temp Pulse Resp BP Pulse Ox 98.2 F 68 14 103/72 97 05/21/20 01:38 05/20/20 17:58 05/21/20 01:34 05/21/20 01:30 05/21/20 01:34 - Laboratory Results Result Diagrams: 05/20/20 20:00 05/20/20 20:00 Laboratory Results Interpreted: 05/20/20 05/20/20 05/20/20 20:00 20:00 21:02 WBC 15.9 H Lymph % (Auto) 10.6 L Absolute Neuts (auto) 12.7 H Seg Neutrophils % 80.2 H Glucose 115 H Urine Ketones TRACE H Urine Blood MODERATE H Labs- All tests 24 hr 05/20/20 05/20/20 05/20/20 20:00 20:00 21:02 WBC 15.9 H RBC 4.88 Hgb 14.8 Hct 43.1 MCV 88 MCH 30.3 MCHC 34.3 RDW 13.3 Plt Count 299 Lymph % (Auto) 10.6 L Rankin % (Auto) 8.7 Eos % (Auto) 0.2 Baso % (Auto) 0.3 Absolute Neuts (auto) 12.7 H Absolute Lymphs (auto) 1.7 Absolute Monos (auto) 1.4 Absolute Eos (auto) 0.0 Absolute Basos (auto) 0.1 Seg Neutrophils % 80.2 H Sodium 138.2 Potassium 4.0 Chloride 102 Carbon Dioxide 27 Anion Gap 9 BUN 12 Creatinine 1.00 Est GFR ( Amer) > 60 Est GFR (MDRD) Non-Af > 60 Glucose 115 H Calcium 10.0 Total Bilirubin 0.5 Direct Bilirubin 0.2 Neonat Total Bilirubin Not Reportable Neonat Direct Bilirubin Not Reportable Neonat Indirect Bili Not Reportable AST 22 ALT 14 Alkaline Phosphatase 119 Total Protein 8.1 Albumin 5.0 Lipase 51.2 Urine Color Urine Appearance Urine pH Ur Specific Rowena Urine Protein Urine Glucose (UA) Urine Ketones Urine Blood Urine Nitrite Urine Bilirubin Urine Urobilinogen Ur Leukocyte Esterase Urine WBC (Auto) Urine RBC (Auto) Amorphous Sediment Auto Urine Mucus (Auto) Urine Ascorbic Acid Chlamydia DNA (PCR) NOT DETECTED N.gonorrhoeae DNA (PCR) NOT DETECTED 05/20/20 21:02 WBC RBC Hgb Hct MCV MCH MCHC RDW Plt Count Lymph % (Auto) Rankin % (Auto) Eos % (Auto) Baso % (Auto) Absolute Neuts (auto) Absolute Lymphs (auto) Absolute Monos (auto) Absolute Eos (auto) Absolute Basos (auto) Seg Neutrophils % Sodium Potassium Chloride Carbon Dioxide Anion Gap BUN Creatinine Est GFR ( Amer) Est GFR (MDRD) Non-Af Glucose Calcium Total Bilirubin Direct Bilirubin Neonat Total Bilirubin Neonat Direct Bilirubin Neonat Indirect Bili AST ALT Alkaline Phosphatase Total Protein Albumin Lipase Urine Color YELLOW Urine Appearance SLIGHTLY-CLOUDY Urine pH 8.0 Ur Specific Rowena 1.009 Urine Protein NEGATIVE Urine Glucose (UA) NEGATIVE Urine Ketones TRACE H Urine Blood MODERATE H Urine Nitrite NEGATIVE Urine Bilirubin NEGATIVE Urine Urobilinogen NEGATIVE Ur Leukocyte Esterase NEGATIVE Urine WBC (Auto) 3 Urine RBC (Auto) 101 Amorphous Sediment Auto TRACE Urine Mucus (Auto) RARE Urine Ascorbic Acid NEGATIVE Chlamydia DNA (PCR) N.gonorrhoeae DNA (PCR) Critical Laboratory Results Reviewed: No Critical Results - Radiology Results Critical Radiology Results Reviewed: No Critical Results Discharge - Discharge Clinical Impression: Ureteral stone, Nausea Abdominal pain Qualifiers: Abdominal location: unspecified location Qualified Code(s): R10.9 - Unspecified abdominal pain Condition: Stable Disposition: HOME, SELF-CARE Additional Instructions: Return immediately for any new or worsening symptoms: Fever, uncontrolled pain, persistent vomiting or any concerning new symptoms Followup with your primary care provider, call tomorrow to make a followup appointment Strain urine Follow-up with urology, call tomorrow for a follow-up appointment KIDNEY STONE: You are passing or have passed a kidney stone. These stones are usually due to increased calcium or uric acid concentrations in your urine. Stones within the kidney itself are not painful. The pain occurs as the stone leaves the kidney to pass down the long tube, called the ureter, leading to the bladder. If the stone is small, it will usually pass by itself. Most patients can pass the stone at home. You will usually receive medications for pain, nausea or vomiting, and sometimes a medication to assist in passing the kidney stone. However, if the pain is very severe or if vomiting prevents you from taking oral pain medications, you may need to return for further treatment. Drink three or four quarts of fluids per day. You will be given pain medication (if needed) and urine strainers. Strain all your urine to see if the stone passes. If your doctor has asked you to bring the stone in for analysis, return with the stone once it has passed. Return if pain or vomiting become severe, if you develop a high fever, if you are unable to pass your urine, or if other unusual symptoms occur. PAIN MEDICATION INJECTION: You have received an injection of a pain medication. You should experience significant pain relief within 45 minutes. This drug is a narcotic -- it will impair your judgement, slow your reaction time and make you sleepy (as well as relieve your pain). Narcotics also can cause nausea. You should not drive, work with machinery, or perform any task requiring mental alertness until all effects of the medication are gone -- six to eight hours. Do not take any alcohol, or sedatives, and do not take any other medication without checking with your physician. ANTINAUSEA MEDICATION: You have been given a medication to suppress nausea and vomiting. This type of medication can be given as a shot, pill, or suppository. It will usually last for many hours. Pills and shots usually last six to eight hours, suppositories last about 12 hours. For the typical illness, only one or two doses of the medication may be necessary. Mild lightheadedness may occur. This type of medicine can cause drowsiness. Do not drive or operate dangerous machinery while under its influence. Do not mix with alcohol. See your doctor at once if you have muscle spasms or tightness, or uncontrollable motions (particularly of the neck, mouth, or jaw). Persistent vomiting or severe lightheadedness should also be evaluated by the physician. ORAL NARCOTIC MEDICATION: You have been given a prescription for pain control. This medication is a narcotic. It's best taken with food, as nausea can result if taken on an empty stomach. Don't operate machinery or drive within six hours of taking this medication. Do not combine this medicine with alcohol, or with any medication which can cause sedation (such as cold tablets or sleeping pills) unless you get permission from the physician. Narcotics tend to cause constipation. If possible, drink plenty of fluids and eat a diet high in fiber and fruits. Please be aware that prescription narcotics also have the potential for abuse. People become addicted to these medications because of the general sense of wellbeing that they induce. This feeling along with a significant reduction in tension, anxiety, and aggression provides a stimulating seductive quality to these drugs. Once your pain is under control, we encourage you to discard your unused narcotics. FLOMAX (tamsulosin): Flomax is a medicine that shrinks the prostate gland. It helps relieve symptoms of benign prostatic hypertrophy, such as frequent urination, weak stream, and inadequate emptying. It has been shown to dilate the ureter (tube leading from the kidney to the bladder) and help in passing kidney stones Flomax usually causes no side effects. You may notice slight tiredness and dizziness for a few days. Some patients develop nasal congestion. Rarely, imp otence can occur. If the symptoms are bothersome and don't improve with continued use, call your doctor. Contact your doctor or return if you have fainting spells, severe weakness or dizziness, shortness of breath, or rash. FOLLOW-UP CARE: If you have been referred to a physician for follow-up care, call the physicians office for an appointment as you were instructed or within the next two days. If you experience worsening or a significant change in your symptoms, notify the physician immediately or return to the Emergency Department at any time for re-evaluation. Prescriptions: Tamsulosin HCl [Flomax 0.4 mg Cap.sr] 0.4 mg PO DAILY #7 cap.sr.24h Oxycodone HCl/Acetaminophen [Percocet 5-325 mg Tablet] 1 tab PO ASDIR PRN #15 tablet PRN Reason: Ondansetron [Zofran Odt 4 mg Tablet] 1 tab PO Q6H #15 tab.rapdis Referrals: [facility] [Primary [facility]] - Follow up as needed [facility] [Provider Group] - Follow up as needed ISA POWELL MD [NO LOCAL MD] - Follow up in 3-5 days
[2020-05-20 20:48] LABS: ABSOLUTE BASOPHILS # (AUTO) 0.1 10^3/uL (0.0-0.2); ABSOLUTE LYMPHOCYTES (AUTO) 1.7 10^3/uL (0.5-4.7); ABSOLUTE MONOCYTES (AUTO) 1.4 10^3/uL (0.1-1.4); ABSOLUTE NEUT (AUTO) 12.7 10^3/uL (1.7-8.2); BASOPHILS % (AUTO) 0.3 % (0-2); EOSINOPHILS % (AUTO) 0.2 % (0-6); HEMATOCRIT 43.1 % (37.9-51.0); HEMOGLOBIN 14.8 g/dL (13.5-17.0); LYMPHOCYTES % (AUTO) 10.6 % (13-45); MEAN CORPUSCULAR HEMOGLOBIN 30.3 pg (27.0-33.4); MEAN CORPUSCULAR HGB CONC 34.3 g/dL (32.0-36.0); MEAN CORPUSCULAR VOLUME 88 fl (80-97); MONOCYTES % (AUTO) 8.7 % (3-13); PLATELET COUNT 299 10^3/uL (150-450); RED BLOOD COUNT 4.88 10^6/uL (4.35-5.55); RED CELL DISTRIBUTION WIDTH 13.3 % (11.5-14.0); SEGMENTED NEUTROPHILS % (AUTO) 80.2 % (42-78); TOTAL CELLS COUNTED % (AUTO) 100 %; WHITE BLOOD COUNT 15.9 10^3/uL (4.0-10.5)
[2020-05-20 20:56] LABS: ALKALINE PHOSPHATASE 119 U/L (38-126); ANION GAP 9 (5-19); ASPARTATE AMINO TRANSFERASE 22 U/L (17-59); BILIRUBIN,DIRECT 0.2 mg/dL (0.0-0.4); BILIRUBIN,TOTAL 0.5 mg/dL (0.2-1.3); BLOOD UREA NITROGEN 12 mg/dL (7-20); CARBON DIOXIDE 27 mmol/L (22-30); CHLORIDE 102 mmol/L (98-107); GLUCOSE 115 mg/dL (75-110); TOTAL PROTEIN 8.1 g/dL (6.3-8.2)
[2020-05-20 22:13] LABS: AMORPHOUS SEDIMENT,URINE TRACE /HPF; APPEARANCE,URINE SLIGHTLY-CLOUDY; BILIRUBIN,URINE NEGATIVE (NEGATIVE); COLOR,URINE YELLOW; GLUCOSE, URINE NEGATIVE (NEGATIVE); KETONES,URINE TRACE mg/dL (NEGATIVE); LEUKOCYTE ESTERASE,URINE NEGATIVE (NEGATIVE); NITRITE,URINE NEGATIVE (NEGATIVE); PROTEIN,URINE NEGATIVE (NEGATIVE); URINE SPECIFIC GRAVITY 1.009; UROBILINOGEN,URINE NEGATIVE mg/dL (<2.0)
--- NOTE | 2020-05-20 23:13 | RADIOLOGY REPORT (SQ) ---
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 Technical factors: This exam was performed according to our departmental dose-optimization program, which includes automated exposure control, adjustment of the mA and/or kV according to patient size and/or use of iterative reconstruction technique. Images were obtained after the administration of 96 mL of Omnipaque 350 intravenous contrast. FINDINGS: Limited evaluation of the lower chest reveals clear lung bases. Liver, gallbladder, spleen, and both adrenal glands appear normal. Pancreas enhances normally. Right kidney nephrogram is slightly delayed relative to the contralateral kidney. Additionally, there is mild right hydronephrosis/hydroureter as a result of an obstructive 2 mm calculus located within the mid right ureter on image 47 of series 3. The urinary bladder is partially collapsed, thus its evaluation is limited. Small and large bowel appear normal in caliber. No evidence of bowel obstruction. Appendix is normal. Vascular structures opacify with contrast normally. No suspicious lymphadenopathy or drainable fluid collections are appreciated. There is a tiny fat-containing umbilical hernia. Bone windows show no destructive osseous lesions. There are postsurgical changes of posterior fusion spanning L5-S1. IMPRESSION: Obstructive 2 mm calculus located within the mid right ureter with associated mild right hydronephrosis/hydroureter.
[2020-05-20 23:35] LABS: CHLAM PCR NOT DETECTED (NOT DETECT)
--- NOTE | 2020-05-21 01:00 | RADIOLOGY REPORT (SQ) ---
EXAM DESCRIPTION: U/S SCROTUM W/DOPPLER RadLex: US SCROTUM CLINICAL HISTORY: 34 years Male; R scrotal pain; TECHNIQUE: Dan-scale, color, and spectral Doppler images were obtained of the testes and scrotum. COMPARISON: None FINDINGS: Right testicle: 5.1 x 2.2 x 3.7 cm. Testicular echogenicity is normal with no focal lesion. Testicular vascular flow is normal. Right epididymis: normal. No hydrocele Left testicle: 5 x 2.3 x 3.1 cm. Testicular echogenicity is normal with no focal lesion. Testicular vascular flow is normal. Left epididymis: normal. No hydrocele IMPRESSION: 1. No testicular mass or torsion.
[2020-05-21] MEDS ORDERED: TAMSULOSIN HCL 0.4 MG CAP.SR.24H PO ONE (01:14)
[2020-05-21 01:38] VITALS: BP 103/72
== END 2020-05-21 01:48 | disposition home or self-care (01) ==
LOC: ER 17:54
DX: N13.2 Hydronephrosis with renal and ureteral calculous obstruction (principal); R10.31 Right lower quadrant pain; R10.813 Right lower quadrant abdominal tenderness; R11.0 Nausea; N50.82 Scrotal pain; R30.0 Dysuria; Z79.899 Other long term (current) drug therapy; Z88.8 Allergy status to other drugs, medicaments and biological substances
CPT/HCPCS: 96376; 99285; 96361; 96374; 96375; 36415; 83690; 85025; 80053; 81001; 87491; 87591; 76870; 93976; 74177; J2270; J2405; J7030